=== PATIENT | male | born 1960 | race Caucasian/White ===

== ENCOUNTER 2021-03-12 09:31 | Emergency (ER) | payer BC ==
[~2021-03-12] VITALS: Ht 193 cm; Wt 100.0 kg
[2021-03-12 12:34] VITALS: BP 156/92
== END 2021-03-12 12:36 | disposition home or self-care (01) ==
LOC: M ED 09:31
DX: S93.402A Sprain of unspecified ligament of left ankle, initial encounter (principal); X58.XXXA Exposure to other specified factors, initial encounter; Y92.89 Other specified places as the place of occurrence of the external cause; F33.9 Major depressive disorder, recurrent, unspecified; K51.90 Ulcerative colitis, unspecified, without complications; Z88.8 Allergy status to other drugs, medicaments and biological substances